=== PATIENT | female | born 2000 | race African-American/Black ===

== ENCOUNTER 2024-02-26 18:31 | Emergency (ER) | payer OTHER, SELFPAY ==
--- NOTE | ~2024-02-26 | XR_ITS ---
EXAMINATION: XR LUMBOSACRAL SPINE CLINICAL INFORMATION: Low back pain, history of herniated disc. COMPARISON: None available. TECHNIQUE: Three views of the lumbosacral spine. FINDINGS: No evidence of acute compression deformity or subluxation. Intervertebral disc heights are maintained. Normal appearance of the posterior elements. SI joints are symmetric. No significant paraspinal soft tissue abnormality. XR/XR lumbar spine 2-3V IMPRESSION: No significant radiographic abnormality of the lumbosacral spine.
[2024-02-26 18:41] VITALS: BP 160/91; PULSE 102; RESP 18; TEMP 36.4; O2SAT 99; BMI 40.2
--- NOTE | 2024-02-26 18:41 | ED.BACK ---
HPI - Back Pain/Injury General Chief Complaint: Back Pain/Injury Stated Complaint: back inj, pins/ needles in legs Time Seen by Provider: 02/26/24 19:51 Source: patient, RN notes reviewed and old records reviewed Mode of arrival: ambulatory History of Present Illness ED Provider: Lola Rios PA-C HPI Narrative: 23-year-old female with a past medical history of herniated disc, plantar fasciitis, presenting to the ED complaining of low back pain > left side with radiation down LLE x 10 days. Reports pain worse with ambulation with associated pins and needles down left lower extremity. Admits to similar symptoms in the past. Has been using heat and topical remedies at home without relief. Patient is a [employer]. Denies recent injury/trauma or fall, weakness, incontinence/retention, fever MD elicited complaint: back pain Related Data Previous Rx's ?Medication ?Instructions ?Recorded acetaminophen 500 mg tablet 500 mg PO Q6H PRN fever or pain 02/26/24 (Tylenol Extra Strength) #14 tabs cyclobenzaprine 5 mg tablet 5 mg PO Q8H PRN pain (scale score 02/26/24 7-10) 5 days #14 tabs lidocaine 5 % topical patch 1 patch topical DAILY PRN pain #30 02/26/24 (Lidoderm) ea Allergies Allergy/AdvReac Type Severity Reaction Status Date / Time No Known Allergies Allergy Verified 02/26/24 18:44 Review of Systems Review of Systems: Constitutional: No Fever, No Chills ENT/Mouth: No Ear Pain, No Nasal Congestion, No sore throat, No Rhinorrhea, No Swallowing Difficulty Cardiovascular: No Chest Pain, No SOB Respiratory: No Cough Gastrointestinal: No Nausea, No Vomiting, No Abdominal pain Genitourinary: No Dysuria, No Urinary Frequency, No Hematuria, No Urinary Incontinence/retention, No Flank Pain Musculoskeletal: + joint pain, No Myalgias, No Joint Swelling Skin: No Skin Lesions, No rash Neuro: No Weakness, No Numbness, +Paresthesias Yes all other systems are reviewed and are negative Constitutional: Constitutional: Reports as per HPI Neurologic: Denies Sensory deficit (Neuro) [facility] Past Medical History Attestation statement: The following information was validated with the patient. Source: old records reviewed Social History Social History Advance Directives: No Advance Directives Information Provided: No Do you have a plan to hurt others: No Plan Physical Exam Vital Signs: Vital Signs: Last Vital Signs Temp 98.1 F 02/26/24 20:38 Pulse 77 02/26/24 20:38 Resp 18 02/26/24 20:38 BP 142/79 H 02/26/24 20:38 Pulse Ox 97 02/26/24 20:38 O2 Del Method Room Air 02/26/24 20:38 BMI result Body Mass Index 40.2 Const: General: cooperative, healthy appearing and no acute distress Orientation/consciousness: patient oriented x3 Limitations: no limitations HEENT: Head: Yes normal to inspection and Yes atraumatic Ears: hearing grossly normal bilaterally General nose exam: Normal external nose present Face and sinus: Yes normal facial exam Eyes: General: appearance normal, both eyes and all related structures EOM: EOMs intact bilaterally Neck: Neck: Yes normal visual inspection and Yes no meningeal signs Resp: Effort & Inspection: normal respiratory effort and no respiratory distress Cardio: Rate: regular rate GI: Inspection: Yes normal to inspection Palpation (GI): Soft to palpation and nontender : General: Yes no CVA tenderness Back/Spine/Pelvis: Other: No midline cervical/thoracic/lumbar spinous tenderness/step-off or deformity. + bilateral lower lumbar paraspinal reproducible tenderness. No rash/erythema or ecchymosis Back: no CVA tenderness Skin: Rashes: no rashes Wounds: no wounds Neuro: Other: Strength intact throughout. No saddle anesthesia. Sensation intact to light touch. Neurovascular intact distally General: patient oriented x3, tone normal and no meningeal signs Cranial nerves: Yes CN's II-XII intact bilaterally Gait exam (Neuro): Normal gait present Motor exam (neuro): 5/5 motor strength present throughout Sensory Exam: No Sensory deficit (Neuro) Extrem: General: Yes normal to inspection Course Course Course Narrative: This is a Rapid Medical Exam performed in triage by Lola Rios PA-C. Full HPI, ROS and PE to be performed by primary ED provider. 23 year-old F w/ PMHx herniated disc presenting to the ED c/o low back pain x10 days with pain w/ambulation. using heat an topicals w/o relief. +pins & needles to LLE. denies incontinence/retention PE: ambulating w/steady gait. +lumbar paraspinal ttp Plan: XR, pain control 1951--XR lumbar spine 2-3V IMPRESSION: No significant radiographic abnormality of the lumbosacral spine. Results discussed with patient including worrisome signs and symptoms and strict return precautions, and when to return to the emergency department. They verbalized understanding and feel safe for discharge at this time. Medications Administered Discontinued Medications Generic Name Dose Route Start Last Admin Trade Name Alden PRN Reason Stop Dose Admin Cyclobenzaprine HCl 10 mg 02/26/24 20:08 02/26/24 20:30 Cyclobenzaprine Hcl 10 Mg Tablet PO 02/26/24 20:09 10 mg ONCE ONE Administration Lidocaine 1 patch 02/26/24 20:08 02/26/24 20:29 Lidocaine 4 % Patch Adh..Patch TRANSDERMA 02/26/24 20:09 1 patch ONCE ONE Administration Protocol Medical Decision Making Medical Decision Making MDM Narrative: 23-year-old female with a past medical history of herniated disc, plantar fasciitis, presenting to the ED complaining of low back pain > left side with radiation down LLE x 10 days. On exam initially tachycardic likely from pain, NAD, nontoxic appearing, ambulating with steady gait, no midline spinous tenderness throughout or red flag symptoms. No saddle anesthesia. Concern for sciatica vs herniated disc vs muscle spasming. Low suspicion for fracture, cauda equina/cord compression or epidural abscess Plan: X-ray, pain control, PCP/spine follow-up Please refer to course for remaining clinical decision making, interpretation of labs/imaging results, and discussions with consultants and/or family members. Differential Diagnosis Differential Diagnoses: The differential diagnosis associated with the presentation includes As above Radiology Impression Discussion of test interpretation with radiology: I have reviewed the radiologist's reading. External Record Review External record reviewed: Inpatient record, Office record, Outpatient record, Prior outpatient labs, Prior outpatient radiology, Primary care record and Outside ED record Tests considered The following testing was considered but not selected: As above Prescription Management I considered prescription management with: Pain Medication Discharge Plan Discharge Clinical Impression: Sciatica Patient Disposition: Home, Self-Care Instructions: Sciatica (ED) Additional Instructions: Your pain is likely musculoskeletal Flexeril is a muscle relaxer, take at night as it makes you drowsy, do not drive, drink alcohol, or operate machinery while taking it Naproxen as an anti-inflammatory / pain medication, take with food Lidoderm patches are numbing patches, apply to painful area In addition take Tylenol at home If symptoms persist or worsen, pain becomes unbearable, you developed urinary retention or incontinence, or weakness return to the ED Prescriptions: New acetaminophen [Tylenol Extra Strength] 500 mg tablet 500 mg PO Q6H PRN (Reason: fever or pain) Qty: 14 0RF lidocaine [Lidoderm] 5 % adhesive patch,medicated 1 patch topical DAILY MDD remove after 12 hours PRN (Reason: pain) Qty: 30 0RF Rx Instructions: leave on most painful area for up to 12 hrs cyclobenzaprine 5 mg tablet 5 mg PO Q8H PRN (Reason: pain (scale score 7-10)) 5 Days Qty: 14 0RF Referrals: [facility] [place] [facility] [Provider Group] [facility] [facility] [Provider Group] [facility] [Provider Group] Interventions: ED Discharge Assessment Last Done: 02/26/24 20:38 Discharge Date/Time: 02/26/24 20:39 Print Language: Kinyarwanda
[2024-02-26] MEDS: Lidocaine 4 % Patch ADH..PATCH 1 PATCH TRANSDERMA (20:29)
[2024-02-26] MEDS: Cyclobenzaprine HCl 10 MG TABLET PO (20:30)
[2024-02-26 20:38] VITALS: BP 142/79; PULSE 77; RESP 18; TEMP 36.7; O2SAT 97
== END 2024-02-26 20:39 | disposition home or self-care (01) ==
PROVIDERS: Emergency Provider Internal Medicine
DX: M54.42 Lumbago with sciatica, left side (principal)
CPT/HCPCS: 72100; 99283; 99284